=== PATIENT | male | born 1965 | race Caucasian/White ===

== ENCOUNTER 2018-02-04 20:09 | Observation (INO) ==
[2018-02-04] MEDS ORDERED: Famotidine PF Inj 20 MG/2 ML Vial IV.PUSH ONE (20:27)
[2018-02-04] MEDS ORDERED: Ketorolac Inj 30 MG/ML (IVP) Vial IV.PUSH ONE (20:27)
[2018-02-04] MEDS ORDERED: Sod Chloride 0.9% Inj 1,000 ML IV.SIG ONE (20:27)
[2018-02-04] MEDS ORDERED: Morphine Inj 4 MG/ML Vial IV.PUSH ONE (20:27)
--- NOTE | 2018-02-04 20:33 | ED ---
HPI General Chief Complaint: Abdominal Pain Stated Complaint: abd pain Xtoday Time Seen by Provider: 02/04/18 20:22 Source: patient Mode of arrival: ambulatory Limitations: no limitations History of Present Illness HPI narrative: The patient is a 52-year-old male who presents to the emergency department via private vehicle for abdominal pain. The patient states he was awake this morning, already at work after eating eggs and an apple when he developed abdominal pain. Initially the abdominal pain was located in the epigastrium and bilateral flanks, however, is now located in the lower quadrants bilaterally. The abdominal pain is cramping, sharp, constant, and associate with mild nausea. The patient denies any vomiting or constipation. The patient denies any history of previous abdominal surgeries. The patient does have a remote history of gastritis 17 years ago. The patient denies any dysuria, frequency, urgency, or hematuria. He denies any associated fever, chills, or sweats. Symptoms are moderate, there are no current alleviating factors. MD complaint: Reports abdominal pain Onset (ago): hour(s) Pain Consistency: constant Location: Reports diffuse Severity: moderate Severity scale (1-10): 6 Quality: Reports cramping and fullness Radiation: Reports LLQ and RLQ Migration to: Reports periumbilical Relieving factors: nothing Exacerbating factors: nothing Associated symptoms: Reports nausea Related Data Home Medications Medication Instructions Recorded Confirmed No Known Home Medications 02/04/18 02/04/18 Allergies Allergy/AdvReac Type Severity Reaction Status Date / Time Penicillins Allergy Intermediate Swelling Verified 02/04/18 20:27 Review of Systems ROS: all other systems reviewed are negative [facility] Medical History Medical History Patient denies medical problems (Acute) Surgical History Surgical History No history of previous surgery (Acute) Social History Social History Substance History: No History of Abuse Smoking Status: Never smoker How Often Do You Have a Drink Containing Alcohol: Monthly or less Recent Travel in [facility] within the Last 8 Weeks: No Recent Out of Country Travel within the Last 8 Weeks: No Exam Narrative Exam Narrative: GENERAL: Awake, alert, pleasant 52-year-old male who appears his stated age and is in no acute respiratory distress. SKIN: Focused skin assessment warm/dry. HEAD: Atraumatic. Normocephalic. EYES: Pupils equal and round. No scleral icterus. No injection or drainage. ENT: No nasal bleeding or discharge. Mucous membranes pink and moist. NECK: Trachea midline. No JVD. CARDIOVASCULAR: Regular rate and rhythm. No murmur appreciated. Heart rate in the 90s per RESPIRATORY: No accessory muscle use. Clear to auscultation. Breath sounds equal bilaterally. GASTROINTESTINAL: Abdomen soft, tender to palpation left lower quadrant and right lower quadrant. No guarding or rigidity. No rebound tenderness. Back: No CVA tenderness. MUSCULOSKELETAL: No obvious deformities. No clubbing. No cyanosis. No edema. NEUROLOGICAL: Awake and alert. No obvious cranial nerve deficits. Motor grossly within normal limits. Normal speech. PSYCHIATRIC: Appropriate mood and affect; insight and judgment normal. Course Initial Documented Vital Signs Temperature 99.7 F H 02/04/18 20:20 Pulse Rate 96 H 02/04/18 20:20 Respiratory Rate 18 02/04/18 20:20 Blood Pressure 124/66 02/04/18 20:20 Pulse Oximetry 97 02/04/18 20:20 Last Documented Vital Signs Temperature 99.7 F H 02/04/18 20:20 Pulse Rate 96 H 02/04/18 20:20 Respiratory Rate 18 02/04/18 20:20 Blood Pressure 124/66 02/04/18 20:20 Pulse Oximetry 97 02/04/18 20:20 Medical Decision Making MDM Narrative Medical decision making narrative: IV was established, labs are drawn and sent, and the patient was placed on cardiac telemetry monitoring and continuous pulse oximetry monitoring. The patient was administered morphine, Toradol, Zofran, Pepcid, and IV fluids. CT of the abdomen and pelvis with IV contrast was obtained to evaluate for possible diverticulitis. The patient's white count was mildly elevated at 14.3. Heart rate was initially in the 90s, temperature 99.7. Patient does have Sirs criteria with heart rate and white count. CT the abdomen and pelvis reveals a 3.6 cm abnormality, possible fecalization but no air-fluid levels to suggest obstruction, also had air bubbles within it, possibly abscess. However, there is no surrounding induration in the fat. Therefore, a call was placed to the on-call general surgeon, Dr. Davey, at 10: 07 PM. I discussed the patient with Dr. Davey at 10:08 PM, after discussion he would prefer transfer to [facility], possibly a repeat CT with oral contrast in the morning, but request transfer in case there is interventional radiology and/or surgical intervention. The patient was administered Cipro and Flagyl, will be kept n.p.o. after midnight, was placed on IV fluids. I discussed the patient with the on-call medical team, Dr. Barrera, who agrees with admission. Medical Screen Exam Complete: Yes Emergency Medical Condition: Yes Differential Diagnosis Differential Diagnosis: Differential diagnosis includes diverticulitis, atypical appendicitis, gastroenteritis, gastritis, food poisoning, pancreatitis , nephrolithiasis. Lab Data Lab results reviewed: Yes I reviewed the patient's lab results. Result diagrams: 02/04/18 20:30 02/04/18 20:30 Lab Results 02/04/18 02/04/18 02/04/18 Range/Units 20:30 20:30 20:30 CBC w Diff Auto diff final WBC 14.3 H (4.0-11.0) th/mm3 RBC 4.85 (4.50-5.90) mil/mm3 Hgb 15.1 (13.0-17.0) gm/dL Hct 42.7 (39.0-51.0) % MCV 88.0 (80.0-100.0) fL MCH 31.2 (27.0-34.0) pg MCHC 35.5 (32.0-36.0) % RDW 13.3 (11.6-17.2) % Plt Count 255 (150-450) th/mm3 MPV 8.6 (7.0-11.0) fL Neut % (Auto) 87.9 H (16.0-70.0) % Lymph % (Auto) 6.0 L (9.0-44.0) % [place] % (Auto) 5.7 (0.0-8.0) % Eos % (Auto) 0.2 (0.0-4.0) % Baso % (Auto) 0.2 (0.0-2.0) % Neut # (Auto) 12.6 H (1.8-7.7) th/mm3 Lymph # (Auto) 0.9 L (1.0-4.8) th/mm3 [place] # (Auto) 0.8 (0.0-0.9) th/mm3 Eos # (Auto) 0.0 (0.0-0.4) th/mm3 Baso # (Auto) 0.0 (0.0-0.2) th/mm3 WBC Differential . Differential Comment . Sodium 136 (136-145) meq/L Potassium 3.7 (3.5-5.1) meq/L Chloride 101 (98-107) meq/L Carbon Dioxide 28.0 (21.0-32.0) meq/L Anion Gap 7 (5-15) meq/L BUN 13 (7-18) mg/dL Creatinine 1.10 (0.60-1.30) mg/dL Estimated GFR 70 L (>89) mL/min Random Glucose 119 H (74-106) mg/dL Lactic Acid 1.2 (0.4-2.0) mmol/L Calcium 8.4 L (8.5-10.1) mg/dL Magnesium 2.1 (1.5-2.5) mg/dL Total Bilirubin 0.4 (0.2-1.0) mg/dL AST 24 (15-37) U/L ALT 52 (12-78) U/L Alkaline Phosphatase 71 (45-117) U/L Total Protein 8.0 (6.4-8.2) g/dL Albumin 4.1 (3.4-5.0) g/dL Lipase 93 (73-393) U/L Urine Color (Yellw/Straw) Urine Clarity (Clear) Urine pH (5.0-8.5) Ur Specific [place] (1.002-1.035) Urine Protein (Neg-Trace) mg/dL Urine Glucose (UA) (Negative) mg/dL Urine Ketones (Negative) mg/dL Urine Occult Blood (Negative) Urine Nitrate (Negative) Urine Bilirubin (Negative) Urine Urobilinogen (Less than 2) mg/dL Ur Leukocyte Esterase (Negative) Ur Squamous Epith Cells (0-5) /hpf Micro UA Comment Ur Microscopic Review Urine Culture Comments 02/04/18 Range/Units 21:40 CBC w Diff WBC (4.0-11.0) th/mm3 RBC (4.50-5.90) mil/mm3 Hgb (13.0-17.0) gm/dL Hct (39.0-51.0) % MCV (80.0-100.0) fL MCH (27.0-34.0) pg MCHC (32.0-36.0) % RDW (11.6-17.2) % Plt Count (150-450) th/mm3 MPV (7.0-11.0) fL Neut % (Auto) (16.0-70.0) % Lymph % (Auto) (9.0-44.0) % [place] % (Auto) (0.0-8.0) % Eos % (Auto) (0.0-4.0) % Baso % (Auto) (0.0-2.0) % Neut # (Auto) (1.8-7.7) th/mm3 Lymph # (Auto) (1.0-4.8) th/mm3 [place] # (Auto) (0.0-0.9) th/mm3 Eos # (Auto) (0.0-0.4) th/mm3 Baso # (Auto) (0.0-0.2) th/mm3 WBC Differential Differential Comment Sodium (136-145) meq/L Potassium (3.5-5.1) meq/L Chloride (98-107) meq/L Carbon Dioxide (21.0-32.0) meq/L Anion Gap (5-15) meq/L BUN (7-18) mg/dL Creatinine (0.60-1.30) mg/dL Estimated GFR (>89) mL/min Random Glucose (74-106) mg/dL Lactic Acid (0.4-2.0) mmol/L Calcium (8.5-10.1) mg/dL Magnesium (1.5-2.5) mg/dL Total Bilirubin (0.2-1.0) mg/dL AST (15-37) U/L ALT (12-78) U/L Alkaline Phosphatase (45-117) U/L Total Protein (6.4-8.2) g/dL Albumin (3.4-5.0) g/dL Lipase (73-393) U/L Urine Color Yellow (Yellw/Straw) Urine Clarity Clear (Clear) Urine pH 6.0 (5.0-8.5) Ur Specific [place] Less/equal 1.005 (1.002-1.035) Urine Protein Negative (Neg-Trace) mg/dL Urine Glucose (UA) Negative (Negative) mg/dL Urine Ketones Negative (Negative) mg/dL Urine Occult Blood Negative (Negative) Urine Nitrate Negative (Negative) Urine Bilirubin Negative (Negative) Urine Urobilinogen 0.2 (Less than 2) mg/dL Ur Leukocyte Esterase Negative (Negative) Ur Squamous Epith Cells 0-5 (0-5) /hpf Micro UA Comment Culture not ind Ur Microscopic Review Microscopic reviewed Urine Culture Comments Culture not ind Imaging Data Radiologist's impression: Abdomen/Pelvis CT 02/04/18 20:27 CONCLUSION: 1. 3.6 cm abnormality in the posterior mid mesentery adjacent to loops of nondistended small bowel with internal contents demonstrate the appearance of fecalization. Even though fecalization has been associated with small bowel obstruction, no dilated loops of small bowel either proximal or distal to suggest obstruction. This could represent an abscess, but there is no induration of the fat about the abnormality. Discharge Plan Physicians Team ED Provider: Pete Lira Primary Care Provider: Skip Mcgregor Other Providers: Quinn Davey Rxs /Orders / Referrals /Forms Prescriptions: No Action No Known Home Medications RF: 0 Status ED Status: Admitted Patient
[2018-02-04 20:44] LABS: Baso % (Auto) 0.2 % (0.0-2.0); Eos % (Auto) 0.2 % (0.0-4.0); Hematocrit 42.7 % (39.0-51.0); Hemoglobin 15.1 gm/dL (13.0-17.0); Lymph # (Auto) 0.9 th/mm3 (1.0-4.8); Mean Corpuscular HGB Conc 35.5 % (32.0-36.0); Mean Corpuscular Hemoglobin 31.2 pg (27.0-34.0); Mean Platelet Volume 8.6 fL (7.0-11.0); Mono # (Auto) 0.8 th/mm3 (0.0-0.9); Mono % (Auto) 5.7 % (0.0-8.0); Neut # (Auto) 12.6 th/mm3 (1.8-7.7); Neut % (Auto) 87.9 % (16.0-70.0); Platelet Count 255 th/mm3 (150-450); Red Blood Count 4.85 mil/mm3 (4.50-5.90); Red Cell Distribution Width 13.3 % (11.6-17.2); White Blood Count 14.3 th/mm3 (4.0-11.0)
[2018-02-04 20:52] LABS: Chloride 101 meq/L (98-107); Potassium 3.7 meq/L (3.5-5.1); Sodium 136 meq/L (136-145)
[2018-02-04 20:55] LABS: Calcium 8.4 mg/dL (8.5-10.1)
[2018-02-04 20:56] LABS: Albumin 4.1 g/dL (3.4-5.0); Anion Gap 7 meq/L (5-15); Blood Urea Nitrogen 13 mg/dL (7-18); Glucose,Random 119 mg/dL (74-106); Lipase 93 U/L (73-393); Magnesium 2.1 mg/dL (1.5-2.5)
[2018-02-04 20:59] LABS: Alanine Aminotransferase 52 U/L (12-78); Aspartate Aminotransferase 24 U/L (15-37); Glomerular Filtration Rate 70 mL/min (>89)
[2018-02-04 21:02] LABS: Alkaline Phosphatase 71 U/L (45-117)
[2018-02-04 21:48] LABS: Bilirubin,Urine Negative (Negative); Clarity,Urine Clear (Clear); Color,Urine Yellow (Yellw/Straw); Glucose,Urine (UA) Negative (Negative); Leukocyte Esterase,Urine Negative (Negative); Nitrite,Urine Negative (Negative); Specific Gravity,Urine Less/Equal 1.005 (1.002-1.035); Urobilinogen,Urine 0.2 mg/dL (Less than 2)
[2018-02-04 21:59] LABS: Squamous Epithelial Cell,Urine 0-5 /hpf (0-5)
--- NOTE | 2018-02-04 22:01 | CT ---
EXAM DATE: 02/04/2018 9:48 PM EST AGE/SEX: 52 years / Male INDICATIONS: Abdominal pain with fever for past twelve hours. CLINICAL DATA: This is the patient's initial encounter. Patient reports that signs and symptoms have been present for 1 day and indicates a pain score of 7/10. MEDICAL/SURGICAL HISTORY: . None. ORAL CONTRAST: No oral contrast ingested. RADIATION DOSE: 10.83 CTDI (mGy) COMPARISON: No prior exams available for comparison. TECHNIQUE: Multiple contiguous axial images were obtained through the abdomen and pelvis following b olus infusion of 90 ml Omnipaque 350 (iohexol) nonionic water-soluble contrast as a single exam dos e. No oral contrast ingested. Using automated exposure control and adjustment of the mA and/or kV ac cording to patient size, radiation dose was kept as low as reasonably achievable to obtain optimal di agnostic quality images. DICOM format image data is available electronically for review and comparis on. FINDINGS: Lower Lungs: The visualized lower lungs are clear. Liver: The liver has a homogeneous density without space-occupying lesion. There is no dilation of th e biliary tree. No calcified gallstones Spleen: Homogeneous density without enlargement. Pancreas: Unremarkable without mass or calcification. Kidneys: Normal in size and shape. No evidence of mass or hydronephrosis. Adrenal Glands: Unremarkable. Aorta: The aorta and proximal iliac vessels are grossly unremarkable without aneurysmal dilation. Bowel/Mesentery: There is a 3.6 cm rounded area in the posterior mid mesentery which contains bubble s of gas and soft tissue density (fecalization) located adjacent to nondistended loops of small bowel . This is best seen on axial image #54. There is no induration of the fat about the abnormality. Loop s of small bowel both proximal and distal to this abnormality are normal in dimension. There is some mild induration surrounding the distal ileum which is nondistended. The colon has a normal appearance . No evidence of free fluid. Abdominal Wall: Intact. Retroperitoneum: No evidence of adenopathy in the retrocrural, para-aortic, or deep pelvic regions. Bladder: Contours are smooth. Reproductive Organs: No abnormal masses or calcifications seen. Inguinal: The inguinal region is unremarkable without evidence of adenopathy. Bony Structures: Unremarkable. CONCLUSION: 1. 3.6 cm abnormality in the posterior mid mesentery adjacent to loops of nondistended small bowel w ith internal contents demonstrate the appearance of fecalization. Even though fecalization has been a ssociated with small bowel obstruction, no dilated loops of small bowel either proximal or distal to suggest obstruction. This could represent an abscess, but there is no induration of the fat about the abnormality. Electronically signed by: Killian Sparks MD 02/04/2018 10:00 PM EST
[2018-02-04] MEDS ORDERED: Ciprofloxacin 400 MG/200 ML 400 MG/200 ML PIGGYBACK IV.SIG ONE (22:16)
[2018-02-04] MEDS: Potassium Chloride Inj 10 MEQ in Sod Chloride 0.9% Inj 1,000 ML IV.CONT SCH (22:33)
[2018-02-05] MEDS ORDERED: Bisacodyl 10 MG Supp RECTAL PRN (00:02)
[2018-02-05] MEDS ORDERED: Acetaminophen 325 MG Tablet PO PRN ×2 (00:02→12:23)
[2018-02-05] MEDS ORDERED: Morphine Sulfate Inj 2 MG/ML Vial IV.PUSH PRN ×2 (03:50→12:23)
[2018-02-05 07:08] LABS: Baso % (Auto) 0.4 % (0.0-2.0); Eos % (Auto) 0.3 % (0.0-4.0); Hematocrit 38.2 % (39.0-51.0); Hemoglobin 13.3 gm/dL (13.0-17.0); Lymph # (Auto) 1.5 th/mm3 (1.0-4.8); Lymph % (Auto) 13.5 % (9.0-44.0); Mean Corpuscular HGB Conc 34.8 % (32.0-36.0); Mean Corpuscular Hemoglobin 31.3 pg (27.0-34.0); Mean Platelet Volume 8.6 fL (7.0-11.0); Mono # (Auto) 1.1 th/mm3 (0.0-0.9); Mono % (Auto) 10.1 % (0.0-8.0); Neut # (Auto) 8.4 th/mm3 (1.8-7.7); Neut % (Auto) 75.7 % (16.0-70.0); Platelet Count 199 th/mm3 (150-450); Red Blood Count 4.25 mil/mm3 (4.50-5.90); Red Cell Distribution Width 13.5 % (11.6-17.2); White Blood Count 11.1 th/mm3 (4.0-11.0)
[2018-02-05 07:47] LABS: Calcium 7.9 mg/dL (8.5-10.1); Carbon Dioxide 27.4 meq/L (21.0-32.0); Potassium 3.6 meq/L (3.5-5.1)
--- NOTE | 2018-02-05 09:36 | P.HPIM ---
History of Present Illness Service: [place] [facility] Primary Care Physician: Skip Mcgregor DO Chief Complaint: Abdominal pain History of Present Illness: 52-year-old male with no past medical history presents to the emergency room due to acute abdominal pain. Patient reported that the pain started yesterday morning when he ate an apple and hard boiled egg for breakfast and noted epigastric abdominal pain with bilateral bandlike radiation in which he describes as sharp and stabbing in nature. He took some Pepto-Bismol thinking and will relieve the pain however after eating a sandwich for lunch had bouts of nausea and nonbilious vomiting with persistent abdominal pain now radiating also to bilateral lower areas of the abdomen. He describes as a sharp stabbing pain that comes and goes however has become more constant now. He denies any associated chills of fever with these symptoms. He has not ate any unusual food during the past week. In addition he had a large bowel movement yesterday evening at 10 PM with no bloody stools or black stools. Of note, patient had a EGD colonoscopy 1 year ago with no abnormal findings. Diagnosis (1) Abdominal pain: Review of Systems Constitutional: Reports as per HPI and Denies headache(s) Eyes: Denies blurry vision, Denies change in vision and Denies eye pain Ears, Nose, Mouth, and Throat: Denies abnormal hearing, Denies headache(s), Denies mouth pain, Denies nasal congestion, Denies neck pain and Denies sore throat Cardiovascular: Denies chest pain, Denies pedal edema, Denies palpitations and Denies dyspnea Respiratory: Denies cough and Denies dyspnea Gastrointestinal: Reports abdominal pain, Denies melena, Denies constipation, Denies early satiety, Denies dyspepsia, Reports heartburn, Denies loose stools, Reports nausea, Reports vomiting and Denies hematemesis Musculoskeletal: Denies back pain, Denies myalgias, Denies arthralgias, Denies neck pain and Denies numbness Skin/Breast: Denies new lesions and Denies rash Neurologic: Denies abnormal hearing, Denies headache(s), Denies focal weakness, Denies memory loss and Denies numbness Psychiatric: Denies anxiety, Denies depression and Denies memory loss Endocrine: Denies cold intolerance, Denies heat intolerance and Denies palpitations Hematologic/Lymphatic: Denies easy bleeding and Denies easy bruising PMFSH Medical History Medical History Patient denies medical problems (Acute) Surgical History Surgical History No history of previous surgery (Acute) Family History Family History Father Diabetes CAD (coronary artery disease) Hypertension Mother Diabetes CAD (coronary artery disease) Hypertension Parkinson disease Social History Social History Substance History: No History of Abuse Second Hand Smoke Exposure: No Smoking Status: Never smoker How Often Do You Have a Drink Containing Alcohol: Monthly or less Recent Travel in [place] within the Last 8 Weeks: No Recent Out of Country Travel within the Last 8 Weeks: No Immunization History Tetanus Immunization: Unsure Medications and Allergies Allergies Allergy/AdvReac Type Severity Reaction Status Date / Time Penicillins Allergy Intermediate Swelling Verified 02/04/18 20:27 Home Medications Medication Instructions Recorded Confirmed Type No Known Home Medications 02/04/18 02/04/18 History Active Medications: Active Medications Acetaminophen (Tylenol) 650 mg PO Q4H PRN PRN Reason: Temp > 100.4 Bisacodyl (Dulcolax Supp) 10 mg RECTAL DAILY PRN PRN Reason: SEVERE CONSITIPATION Potassium Chloride 10 meq/ (Sodium Chloride) 1,005 mls @ 100 mls/hr IV.CONT .Q10H3M PAWEL Last Admin: 02/04/18 22:33 Dose: 100 mls/hr Morphine Sulfate (Morphine Inj) 2 mg IV.PUSH Q3H PRN PRN Reason: pain > 4 Ondansetron HCl (Zofran Inj) 4 mg IV.PUSH Q6H PRN PRN Reason: NAUSEA OR VOMITING Sennosides (Senokot) 17.2 mg PO Q12H PRN PRN Reason: Moderate Constipation Sodium Chloride (Ns Flush) 2 ml IV.FLUSH PRN PRN PRN Reason: FLUSH AFTER USING IV ACCESS Last Admin: 02/04/18 20:49 Dose: 2 ml Physical Exam Vital signs: Last Vital Signs Temp 98.8 F 02/05/18 08:00 Pulse 84 02/05/18 08:00 Resp 18 02/05/18 08:00 BP 119/66 02/05/18 08:00 Pulse Ox 95 02/05/18 08:00 Intake & Output 02/03/18 02/04/18 02/05/18 02/06/18 06:59 06:59 06:59 06:59 Intake Total 1300 / 1300 Output Total 100 / 100 Balance 1200 / 1200 Weight 83.4 kg Narrative: GENERAL: Well-nourished well-developed white male no acute distress SKIN: Warm and dry. HEAD: Atraumatic. Normocephalic. EYES: Pupils equal and round. No scleral icterus. No injection or drainage. ENT: No nasal bleeding or discharge. Mucous membranes pink and moist. NECK: Trachea midline. No JVD. CARDIOVASCULAR: Regular rate and rhythm. RESPIRATORY: No accessory muscle use. Clear to auscultation. Breath sounds equal bilaterally. GASTROINTESTINAL: Abdomen soft, mild tenderness in the bilateral lower quadrant with no rebound or guarding, nondistended. Hepatic and splenic margins not palpable. Normoactive bowel sounds MUSCULOSKELETAL: Extremities without clubbing, cyanosis, or edema. No obvious deformities. NEUROLOGICAL: Awake and alert. No obvious cranial nerve deficits. Motor grossly within normal limits. Five out of 5 muscle strength in the arms and legs. Normal speech. PSYCHIATRIC: Appropriate mood and affect; insight and judgment normal. Results Labs CBC & Chem 7: 02/05/18 05:41 02/05/18 05:41 Imaging Impressions Abdomen/Pelvis CT 02/04/18 20:27 CONCLUSION: 1. 3.6 cm abnormality in the posterior mid mesentery adjacent to loops of nondistended small bowel with internal contents demonstrate the appearance of fecalization. Even though fecalization has been associated with small bowel obstruction, no dilated loops of small bowel either proximal or distal to suggest obstruction. This could represent an abscess, but there is no induration of the fat about the abnormality. Caprini VTE Risk Assessment Caprini VTE Risk Assessment: No/Low Risk (score <= 1) Caprini Risk Assessment Model: Point Value = 1 Point Value = 2 Point Value = 3 Point Value = 5 Age 41-60 Minor surgery BMI > 25 kg/m2 Swollen legs Varicose veins or History of unexplained or recurrent spontaneous Oral contraceptives or hormone replacement Sepsis (< 1 month) Serious lung disease, including pneumonia (< 1 month) Abnormal pulmonary function Acute myocardial infarction Congestive heart failure (< 1 month) History of inflammatory bowel disease Medical patient at bed rest Age 61-74 Arthroscopic surgery Major open surgery (> 45 min) Laparoscopic surgery (> 45 min) Malignancy Confined to bed (> 72 hours) Immobilizing plaster cast Central venous access Age >= 75 History of VTE Family history of VTE Factor V Leiden Prothrombin [id number] Lupus anticoagulant Anticardiolipin antibodies Elevated serum homocysteine Heparin-induced thrombocytopenia Other congenital or acquired thrombophilia Stroke (< 1 month) Elective arthroplasty Hip, pelvis, or leg fracture Acute spinal cord injury (< 1 month) Prophylaxis Regimen: Total Risk Factor Score Risk Level Prophylaxis Regimen 0-1 Low Early ambulation 2 Moderate Order ONE of the following: *Sequential Compression Device (SCD) *Heparin 5000 units SQ BID 3-4 Higher Order ONE of the following medications: *Heparin 5000 units SQ TID *Enoxaparin/Lovenox 40 mg SQ daily (WT < 150 kg, CrCl > 30 mL/min) *Enoxaparin/Lovenox 30 mg SQ daily (WT < 150 kg, CrCl > 10-29 mL/min) *Enoxaparin/Lovenox 30 mg SQ BID (WT < 150 kg, CrCl > 30 mL/min) AND/OR *Sequential Compression Device (SCD) 5 or more Highest Order ONE of the following medications: *Heparin 5000 units SQ TID (Preferred with Epidurals) *Enoxaparin/Lovenox 40 mg SQ daily (WT < 150 kg, CrCl > 30 mL/min) *Enoxaparin/Lovenox 30 mg SQ daily (WT < 150 kg, CrCl > 10-29 mL/min) *Enoxaparin/Lovenox 30 mg SQ BID (WT < 150 kg, CrCl > 30 mL/min) AND *Sequential Compression Device (SCD) Assessment and Plan (1) Abdominal pain: Code(s): R10.9 - Unspecified abdominal pain Status: Acute Plan 52-year-old white male presents with acute abdominal pain 1. Acute abdominal pain associated with abnormal CT with abnormality in the posterior mid mesentery adjacent to loops of small bowel with possibility of underlying abscess Suspect sepsis on present on admission with findings of leukocytosis and tachycardia with suspected underlying abscess Surgical consult was placed with recommendations to the emergency room physician to repeat CT abdomen pelvis and continued clinical abdominal serial exams. Leukocytosis trended down with IV antibiotics and supportive care Continue bowel rest and with n.p.o. Continue pain control. 2. DVT prophylaxisbilateral SCDs H&P: Quality VTE Deep Vein Thrombosis/Pulmonary Embolism Present on Admission: No
[2018-02-05] MEDS ORDERED: Diatrizoate Meglum/Diatrizoate Sod Liq 9 ML UDC PO ONE (09:49)
[2018-02-05] MEDS: Potassium Chloride Inj 10 MEQ in Sod Chloride 0.9% Inj 1,000 ML IV.CONT SCH (10:47)
[2018-02-05] MEDS: Ciprofloxacin 400 MG/200 ML 400 MG/200 ML PIGGYBACK IV.SIG SCH ×2 (10:51→23:21)
[2018-02-05] MEDS ORDERED: Ibuprofen 400 MG Tablet PO ONE (16:15)
--- NOTE | 2018-02-05 16:39 | P.CONGS ---
[facility] Gen Surgery Consult Note Consult date: 02/05/18 Reason for consult: abdominal pain Narrative: CONSULTATION NOTE FOR SURGICAL ATTENDING, DR. АЛЕКСАНДР DAVEY Patient was in his normal sterile state of health when he started to have epigastric pain nausea became worse and he came to the emergency room a CT scan was done with noncontrast and showed some abnormality in the small bowel they recommended a contrasted study. Since he has been admitted to the hospital his pain is somewhat resolved he still having a little nausea he is waiting to get his CT scan. He is never had any abdominal surgery before he had a remote history of gastritis He recently had a EGD and colonoscopy which were all okay according to patient Review of Systems All other systems reviewed negative except as stated in [facility] - History History Provided By: Patient - Medical History Medical History: Medical History (Last Reviewed 02/05/18 @ 16:36 by Александр Davey MD) Patient denies medical problems - Surgical History Surgical History: Surgical History (Last Reviewed 02/05/18 @ 16:36 by Александр Davey MD) No history of previous surgery - Family History Family History: Family History (Last Reviewed 02/05/18 @ 16:36 by Александр Davey MD) Father Diabetes CAD (coronary artery disease) Hypertension Mother Diabetes CAD (coronary artery disease) Hypertension Parkinson disease - Social History I have reviewed the patient's Social History: Yes - Tobacco History Second Hand Smoke Exposure: No Smoking Status: Never smoker - Alcohol History How Often Do You Have a Drink Containing Alcohol: Monthly or less - Substance Use History Substance History: No History of Abuse - Travel History Recent Travel in the [place] Within the Last 8 Weeks: No Recent Travel Out of the Country Within the Last 8 Weeks: No - Immunization History Tetanus Immunization: Unsure Medications and Allergies Active Medications: Active Medications Acetaminophen (Tylenol) 650 mg PO Q4H PRN PRN Reason: TEMP>101F, PAIN 1-10, HEADACHE Last Admin: 02/05/18 13:04 Dose: 650 mg Bisacodyl (Dulcolax Supp) 10 mg RECTAL DAILY PRN PRN Reason: SEVERE CONSITIPATION Potassium Chloride 10 meq/ (Sodium Chloride) 1,005 mls @ 100 mls/hr IV.CONT .Q10H3M [facility] Last Admin: 02/05/18 10:47 Dose: 100 mls/hr Metronidazole/Sodium Chloride (Flagyl 250 Mg Inj) 50 mls @ 100 mls/hr IV.SIG Q8H [facility] Last Infusion: 02/05/18 13:08 Dose: Infused Ciprofloxacin/Dextrose (Cipro 400 Mg/200 Ml Inj) 400 mg in 200 mls @ 200 mls/ hr IV.SIG Q12H [facility] Last Infusion: 02/05/18 12:00 Dose: Infused Morphine Sulfate (Morphine Inj) 2 mg IV.PUSH Q3H PRN PRN Reason: BREAKTHROUGH PAIN Ondansetron HCl (Zofran Inj) 4 mg IV.PUSH Q6H PRN PRN Reason: NAUSEA OR VOMITING Last Admin: 02/05/18 13:05 Dose: 4 mg Sennosides (Senokot) 17.2 mg PO Q12H PRN PRN Reason: Moderate Constipation Sodium Chloride (Ns Flush) 2 ml IV.FLUSH PRN PRN PRN Reason: FLUSH AFTER USING IV ACCESS Last Admin: 02/04/18 20:49 Dose: 2 ml Allergies Allergy/AdvReac Type Severity Reaction Status Date / Time Penicillins Allergy Intermediate Swelling Verified 02/04/18 20:27 Home Medications Medication Instructions Recorded Confirmed Type No Known Home Medications 02/04/18 02/04/18 History Exam Vital signs: Vital Signs 02/04/18 20:20 02/04/18 22:26 02/05/18 00:27 Temperature 99.7 F H Pulse Rate 96 H 92 H 88 Respiratory Rate 18 Blood Pressure 124/66 107/63 107/65 Pulse Oximetry 97 97 97 02/05/18 01:31 02/05/18 04:00 02/05/18 08:00 Temperature 98.1 F 98.5 F 98.8 F Pulse Rate 78 88 84 Respiratory Rate 18 Blood Pressure 123/65 104/68 119/66 Pulse Oximetry 94 L 96 95 02/05/18 11:40 02/05/18 16:00 Temperature 99.4 F 100.1 F H Pulse Rate 86 87 Respiratory Rate 18 20 Blood Pressure 137/67 136/61 Pulse Oximetry 97 94 L Intake & Output 02/04/18 02/05/18 02/05/18 18:59 06:59 18:59 Intake Total 1300 / 1300 1255 / 1255 Output Total 100 / 100 Balance 1200 / 1200 1255 / 1255 Weight 83.4 kg Intake: IV 1300 / 1300 1255 / 1255 KCl Inj 10 MEQ In NS Inj 1,000 1005 / 1005 ML @ 100 mls/hr IV.CONT .Q10H3M [facility] Rx#:[id number] Cipro 400 MG/200 ML Inj 400 mg 200 / 200 200 / 200 In 200 ml @ 200 mls/hr IV.SIG Q12H [facility] Rx#:[id number] NS Inj 1,000 ML @ Wide Open IV. 1000 / 1000 SIG BOLUS ONE Rx#:[id number] Flagyl 250 mg Inj 50 ML @ 100 50 / 50 mls/hr IV.SIG Q8H [facility] Rx#: [id number] Flagyl 500 MG Inj 100 ML @ 100 100 / 100 mls/hr IV.SIG ONCE ONE Rx#: [id number] Output: Urine 100 / 100 Other: # Voids 1 Narrative: Alert oriented sitting up in bed Neck is supple no JVD Chest is clear throughout Abdomen thin soft no surgical scars mild soreness to very very deep palpation in the midepigastric region no rebound or guarding no umbilical hernia noted no tenderness to left lower quadrant no tenderness in the right upper quadrant no tenderness in the right lower quadrant Moves all extremities well no clubbing cyanosis or edema Neurologic alert oriented without focal deficits Results - Labs 02/05/18 05:41 02/05/18 05:41 Laboratory Results - last 24 hr 02/04/18 02/04/18 02/04/18 20:30 20:30 20:30 CBC w Diff Auto diff final WBC 14.3 H RBC 4.85 Hgb 15.1 Hct 42.7 MCV 88.0 MCH 31.2 MCHC 35.5 RDW 13.3 Plt Count 255 MPV 8.6 Neut % (Auto) 87.9 H Lymph % (Auto) 6.0 L [place] % (Auto) 5.7 Eos % (Auto) 0.2 Baso % (Auto) 0.2 Neut # (Auto) 12.6 H Lymph # (Auto) 0.9 L [place] # (Auto) 0.8 Eos # (Auto) 0.0 Baso # (Auto) 0.0 WBC Differential . Differential Comment . Sodium 136 Potassium 3.7 Chloride 101 Carbon Dioxide 28.0 Anion Gap 7 BUN 13 Creatinine 1.10 Estimated GFR 70 L Random Glucose 119 H Lactic Acid 1.2 Calcium 8.4 L Magnesium 2.1 Total Bilirubin 0.4 AST 24 ALT 52 Alkaline Phosphatase 71 Total Protein 8.0 Albumin 4.1 Lipase 93 Urine Color Urine Clarity Urine pH Ur Specific [place] Urine Protein Urine Glucose (UA) Urine Ketones Urine Occult Blood Urine Nitrate Urine Bilirubin Urine Urobilinogen Ur Leukocyte Esterase Ur Squamous Epith Cells Micro UA Comment Ur Microscopic Review Urine Culture Comments 02/04/18 02/05/18 02/05/18 21:40 05:41 05:41 CBC w Diff WBC 11.1 H RBC 4.25 L Hgb 13.3 Hct 38.2 L MCV 90.0 MCH 31.3 MCHC 34.8 RDW 13.5 Plt Count 199 MPV 8.6 Neut % (Auto) 75.7 H Lymph % (Auto) 13.5 [place] % (Auto) 10.1 H Eos % (Auto) 0.3 Baso % (Auto) 0.4 Neut # (Auto) 8.4 H Lymph # (Auto) 1.5 [place] # (Auto) 1.1 H Eos # (Auto) 0.0 Baso # (Auto) 0.0 WBC Differential . Differential Comment Auto diff final Sodium 139 Potassium 3.6 Chloride 105 Carbon Dioxide 27.4 Anion Gap 7 BUN 11 Creatinine 1.04 Estimated GFR 75 L Random Glucose 89 Lactic Acid Calcium 7.9 L Magnesium Total Bilirubin AST ALT Alkaline Phosphatase Total Protein Albumin Lipase Urine Color Yellow Urine Clarity Clear Urine pH 6.0 Ur Specific [place] Less/equal 1.005 Urine Protein Negative Urine Glucose (UA) Negative Urine Ketones Negative Urine Occult Blood Negative Urine Nitrate Negative Urine Bilirubin Negative Urine Urobilinogen 0.2 Ur Leukocyte Esterase Negative Ur Squamous Epith Cells 0-5 Micro UA Comment Culture not ind Ur Microscopic Review Microscopic reviewed Urine Culture Comments Culture not ind - Imaging Imaging: ITS Impressions Abdomen/Pelvis CT 02/04/18 20:27 CONCLUSION: 1. 3.6 cm abnormality in the posterior mid mesentery adjacent to loops of nondistended small bowel with internal contents demonstrate the appearance of fecalization. Even though fecalization has been associated with small bowel obstruction, no dilated loops of small bowel either proximal or distal to suggest obstruction. This could represent an abscess, but there is no induration of the fat about the abnormality. CT scan - abdomen: report reviewed, image reviewed CT scan - pelvis: report reviewed, image reviewed Assessment and Plan - Assessment (1) Abnormal findings on diagnostic imaging of abdomen Code(s): R93.5 - Abnormal findings on diagnostic imaging of other abdominal regions, including retroperitoneum Status: Acute (2) Abdominal pain Code(s): R10.9 - Unspecified abdominal pain Status: Acute (3) Leukocytosis Code(s): D72.829 - Elevated white blood cell count, unspecified Status: Acute - Plan At this time his pain is somewhat resolved may be a result of the antibiotic therapy. This is somewhat of an unusual finding on the original CT scan. Awaiting do a CT scan with contrast to further delineate this abnormality seen on the noncontrasted study. We will await further management decisions after the CT scan is done - Attending Attestation CONSULTATION NOTE FOR SURGICAL ATTENDING, DR. АЛЕКСАНДР DAVEY I attest that I had a [id number] encounter with the patient on the same day, and personally performed and documented my assessment and findings in the medical record. The following services were provided during this hospital visit: Chart data review, vital sign assessments/reviewing monitor data Review of consultations notes if present. Medication orders/review and/or management Ordering and/or reviewing lab tests Ordering and/or interpreting/reviewing x-rays and/or diagnostic studies Care of the patient and discussion of the patient with the care team Documentation time To help prompt me to consider important information that might be impacting today's encounter and assessment, Information from prior notes written by myself or my colleagues may have been "brought forward/copy and pasted" into today's note.
--- NOTE | 2018-02-05 19:59 | CT ---
EXAM DATE: 02/05/2018 7:26 PM EST AGE/SEX: 52 years / Male INDICATIONS: Abdominal pain. CLINICAL DATA: This is the patient's initial encounter. Patient reports that signs and symptoms have been present for 1 day and indicates a pain score of 7/10. MEDICAL/SURGICAL HISTORY: . Leukocytosis, systemic inflammatory syndrome None. ORAL CONTRAST: Prescribed oral contrast ingested. RADIATION DOSE: 13.05 CTDI (mGy) COMPARISON: [facility], CT ABDOMEN & PELVIS W CONTRAST, 02/04/2018. . TECHNIQUE: Multiple contiguous axial images were obtained through the abdomen and pelvis following b olus infusion of 95 ml Omnipaque 350 (iohexol) nonionic water-soluble contrast as a single exam dos e. Prescribed oral contrast ingested. Using automated exposure control and adjustment of the mA and/ or kV according to patient size, radiation dose was kept as low as reasonably achievable to obtain op timal diagnostic quality images. DICOM format image data is available electronically for review and comparison. FINDINGS: The examination is performed with intravenous and oral contrast. Prior CT scan had demonstrated a foc al abnormality in the mid abdomen with fecalization; on today's examination, there is contrast in nor mal-appearing loops of small bowel the same region. Oral contrast passes through to the descending co shanti. There is an abnormal appearance to the fat in the posterior lower right abdomen with interval de velopment of induration about a tubular structure which measures 11 mm. There is also some minimal fl uid tracking laterally. This tubular structure ends blindly and can be traced back to the cecum sugge sting an inflamed enlarged appendix. No evidence of free fluid in the pelvis. The liver, gallbladder, spleen, pancreas, kidneys, and adrenal glands are intact. Incidental note of retroaortic aortic left renal vein. CONCLUSION: 1. Interval development of induration of the fat about an enlarged and thickened appendix, character istic of appendicitis. 2. The abnormality seen in the posterior mid mesentery on yesterday's CT scan, believed to arise fro m or adjacent to the small bowel, has resolved. No evidence of obstruction with oral contrast passing through to the descending colon. Electronically signed by: Killian Sparks MD 02/05/2018 7:58 PM EST
--- NOTE | 2018-02-05 20:31 | P.PNADD ---
Addendum to Inpatient Note Reason for Addendum: Additional Documentation Additional information: Discussed abnormal CT of abd/pelvis suggestive of appendicitis with Dr. Bailey. Patient to remain NPO. Surgical management per Dr. Bailey.
[2018-02-05] MEDS ORDERED: Bupivacaine/Epinephrine PF Inj 0.5% 30 ML Vial ONE (21:23)
[2018-02-05] MEDS ORDERED: Sodium Chloride 0.9% 2 ML Flush PRN IV.FLUSH (21:47)
[2018-02-05] MEDS ORDERED: Chlorhexidine Gluconate 2% 1 Pack (2 Cloths) TOPICAL ONE (22:00)
[2018-02-05] MEDS ORDERED: Sodium Chlor 0.9% Inj 500 ML IV.CONT ONE (22:00)
[2018-02-05] MEDS ORDERED: Lidocaine PF 1% Inj 5 ML Syringe OTHER ONE (22:08)
[2018-02-05] MEDS ORDERED: Ketorolac Inj 30 MG/ML (IVP) Vial IV.PUSH ONE (22:08)
[2018-02-05] MEDS ORDERED: Sugammadex Inj 200 MG/2 ML Vial IV.PUSH ONE (22:40)
[2018-02-05] MEDS ORDERED: Morphine Inj 4 MG/ML Vial IV.PUSH PRN (23:10)
[2018-02-05] MEDS ORDERED: fentaNYL Citrate Inj 100 MCG/2 ML Ampul ONE (23:20)
--- NOTE | 2018-02-06 01:00 | MP ---
cc: Tye Walton MD DATE OF OPERATION: 02/05/2018 PREOPERATIVE DIAGNOSIS: Acute appendicitis. POSTOPERATIVE DIAGNOSIS: Acute uncomplicated appendicitis. PROCEDURE PERFORMED: Laparoscopic appendectomy. SURGEON: Tye Walton MD FOUNDRY PATTERNMAKER: Staff. ANESTHESIA: General and local anesthetic. FINDINGS: 1. Acute suppurative appendix with no evidence of gangrene or rupture or any complication. 2. No intraabdominal pathology, normal-appearing liver, stomach and viscera. ESTIMATED BLOOD LOSS: Less than 10 mL. COMPLICATIONS: None. INDICATIONS: The patient is a 52-year-old male who was admitted to [facility] with abdominal pain. Initial workup including CT scan was nonspecific. The patient underwent observation for his pain and the pain did more locate to the right lower quadrant. A followup CT scan was performed per surgery recommendations and did show some increased inflammation around the appendix concerning for development of appendicitis. Surgery team had recommended laparoscopic appendectomy and I discussed the risks, benefits and alternatives to laparoscopic appendectomy for the patient for treatment of his likely acute appendicitis. All questions were answered to his satisfaction and he agreed to proceed to the operating room for surgery urgently. DESCRIPTION OF PROCEDURE: The patient was taken to the operating room and placed in a supine position and placed under general endotracheal anesthesia. The patient's abdomen was shaved, prepped and draped in a sterile fashion. Timeout was performed. The abdomen was entered through a Thomas periumbilical technique below the umbilicus. We directly spread through the fascia and entered the abdomen through the perineum with S retractors. Local anesthetic was instilled prior to the entry as well as at the end of the case, as well as at all port sites. We directly placed a 10 mm trocar into the abdomen under visualization and insufflated the abdomen. We surveyed the abdomen with a 5 mm 30-degree camera. There was no evidence of any complication from our entry. We were able to place two 5 mm ports, one was in the suprapubic area and one in the left lower quadrant, under direct visualization of laparoscope. We were able to visualize the appendix easily at the base as it splayed into the tinea. We grasped this with a laparoscopic [place] with minimal dissection bluntly of some retroperitoneal adhesions. The appendix was brought up into our field of vision. There was some severe inflammation at the tip without any evidence of gangrene or rupture. Some minimal purulence and no abscess or any signs of any contamination. Of note, also on diagnostic laparoscopy, there was no evidence of any intra-abdominal pathology. It was a normal stomach, small bowel, colon and liver, as much as was visualized. We were able to use a single white load on the [place] 60 stapler to divide the base of the appendix as well as the thin area of mesentery adjacent to it with one white load. The appendix was removed from the abdomen with the EndoCatch bag through the periumbilical Thomas port. There was some small breakthrough bleeding at the mesentery and approximately 4 Hemoclips were placed on the appendiceal mesentery to ensure hemostasis. We had excellent hemostasis and about 5 mL of bleeding was taken out with the Ray-Alec sponge through the port. We then placed the omentum back over the right lower quadrant in the midline. We removed all the ports under visualization of the laparoscope and expressed pneumoperitoneum. We closed the Thomas entry site with a [id number] 0 Vicryl suture. We closed the skin with 4-0 Monocryl and Dermabond. The patient was discontinued from anesthesia and taken to the PACU in stable condition. The patient tolerated the procedure well. No apparent complications. All counts were correct and I was present and scrubbed for the entire procedure. MD TOSHA Raya/bar , 11:09 PM , 11:17 PM
[2018-02-06] MEDS: Potassium Chloride Inj 10 MEQ in Sod Chloride 0.9% Inj 1,000 ML IV.CONT SCH (05:30)
[2018-02-06 06:39] VITALS: RESP 18
--- NOTE | 2018-02-06 07:27 | P.PNGS ---
Subjective Patient reports: feels better, pain is less, tolerating a regular diet Physical Exam Vital signs: Vital Signs 02/05/18 08:00 02/05/18 11:40 02/05/18 16:00 Temperature 98.8 F 99.4 F 100.1 F H Pulse Rate 84 86 87 Respiratory Rate 18 18 20 Blood Pressure 119/66 137/67 136/61 Pulse Oximetry 95 97 94 L 02/05/18 20:00 02/05/18 23:00 02/05/18 23:11 Temperature 98.6 F 98.7 F 98.5 F Pulse Rate 88 92 H 97 H Respiratory Rate 18 19 15 Blood Pressure 129/68 133/69 125/66 Pulse Oximetry 95 99 96 02/05/18 23:15 02/06/18 04:00 Temperature 98.1 F Pulse Rate 101 H 91 H Respiratory Rate 16 18 Blood Pressure 124/62 115/70 Pulse Oximetry 98 95 Intake & Output 02/05/18 02/06/18 02/06/18 18:59 06:59 18:59 Intake Total 1255 / 1255 1705 / 1705 Output Total 5 / 5 Balance 1255 / 1255 1700 / 1700 Weight 82.8 kg Intake: IV 1255 / 1255 1105 / 1105 KCl Inj 10 MEQ In NS Inj 1,000 1005 / 1005 1005 / 1005 ML @ 100 mls/hr IV.CONT .Q10H3M [facility] Rx#:[id number] Cipro 400 MG/200 ML Inj 400 mg 200 / 200 In 200 ml @ 200 mls/hr IV.SIG Q12H [facility] Rx#:[id number] Flagyl 250 mg Inj 50 ML @ 100 50 / 50 100 / 100 mls/hr IV.SIG Q8H [facility] Rx#: [id number] Anesthesia Amount 600 / 600 Output: Estimated Blood Loss 5 / 5 Urine Amount (Catheter) 0 / 0 Indwelling Urethral Catheter 0 / 0 Other: # Voids 4 3 Date of Last Bowel Movement 02/04/18 Weight On Admission 83.4 kg - Constitutional no acute distress - Routine Abdominal Exam Present: soft, normoactive bowel sounds, tenderness. Absent: distended, rebound , guarding Comments: incisions c/d/i - Urinary Catheter Management Indwelling Urethral Catheter Cath placed during this visit: no Results - Labs 02/05/18 05:41 02/05/18 05:41 Laboratory Results - last 24 hr 02/05/18 05:41 Sodium 139 Potassium 3.6 Chloride 105 Carbon Dioxide 27.4 Anion Gap 7 BUN 11 Creatinine 1.04 Estimated GFR 75 L Random Glucose 89 Calcium 7.9 L - Imaging Imaging: ITS Impressions Abdomen/Pelvis CT 02/05/18 00:00 CONCLUSION: 1. Interval development of induration of the fat about an enlarged and thickened appendix, characteristic of appendicitis. 2. The abnormality seen in the posterior mid mesentery on yesterday's CT scan, believed to arise from or adjacent to the small bowel, has resolved. No evidence of obstruction with oral contrast passing through to the descending colon. Assessment and Plan - Assessment (1) Abdominal pain Code(s): R10.9 - Unspecified abdominal pain Status: Acute (2) Leukocytosis Code(s): D72.829 - Elevated white blood cell count, unspecified Status: Acute (3) Acute appendicitis Code(s): K35.80 - Unspecified acute appendicitis Status: Acute Plan: 52yo male POD#1 lap appy, doing well. can DC home if tolerates regular diet today. Rx on chart. fu with Dr. Walton in 1 week. ok to shower.
[2018-02-06 08:13] VITALS: BP 132/65; PULSE 93; TEMP 98.3; O2SAT 96
[2018-02-06] MEDS ORDERED: Sodium Chloride 0.9% 2 ML Flush BID IV.FLUSH SCH (09:00)
--- NOTE | 2018-02-06 10:06 | P.PNIM ---
Subjective Interval history: Reports mild tenderness over the right lower abdomen area otherwise tolerating diet and feels good. No nausea vomiting no fevers or chills. Wants to go home. Physical Exam Vital signs: Last Vital Signs Temp 98.3 F 02/06/18 08:00 Pulse 93 H 02/06/18 08:00 Resp 18 02/06/18 08:00 BP 132/65 02/06/18 08:00 Pulse Ox 96 02/06/18 08:00 Intake & Output 02/04/18 02/05/18 02/06/18 02/07/18 06:59 06:59 06:59 06:59 Intake Total 1300 / 1300 2960 / 2960 Output Total 100 / 100 5 / 5 Balance 1200 / 1200 2955 / 2955 Weight 83.4 kg 82.8 kg Narrative: GENERAL: This is a well-nourished, well-developed patient, in no apparent distress. CARDIOVASCULAR: Regular rate and rhythm without murmurs, gallops, or rubs. RESPIRATORY: Clear to auscultation. Breath sounds equal bilaterally. No wheezes , rales, or rhonchi. GASTROINTESTINAL: Abdomen soft, non-tender, nondistended. Normal active bowel sounds, small surgical incision below umbilicus clean dry and intact MUSCULOSKELETAL: Extremities without clubbing, cyanosis, or edema. NEURO: Alert & Oriented x4 to person, place, time, situation. Moves all ext x4 Urinary Catheter Management Indwelling Urethral Catheter: Cath placed during this visit: no Results Labs CBC & Chem 7: 02/05/18 05:41 02/05/18 05:41 Imaging Imaging: Impressions Abdomen/Pelvis CT 02/05/18 00:00 CONCLUSION: 1. Interval development of induration of the fat about an enlarged and thickened appendix, characteristic of appendicitis. 2. The abnormality seen in the posterior mid mesentery on yesterday's CT scan, believed to arise from or adjacent to the small bowel, has resolved. No evidence of obstruction with oral contrast passing through to the descending colon. Assessment and Plan (1) Abdominal pain: Code(s): R10.9 - Unspecified abdominal pain Status: Acute (2) Leukocytosis: Code(s): D72.829 - Elevated white blood cell count, unspecified Status: Acute (3) Acute appendicitis: Code(s): K35.80 - Unspecified acute appendicitis Status: Acute Plan 52-year-old white male presents with acute abdominal pain 1. Sepsis present on admission with findings of leukocytosis and tachycardia with underlying acute appendicitis Status post operative day #1 lap appendectomy Patient will has been on IV Cipro and Flagyl since admission. Currently tolerating diet and will be discharged to home. Leukocytosis trended down with IV antibiotics and supportive care 2. DVT prophylaxisbilateral SCDs Discharge patient to home Condition on discharge: Improved Regular Diet as tolerated Ad Tessa activity Rx written: [place] 5 p.o. every 4 hours as needed for pain written by Dr. Alexis Follow-up with primary care physician Follow-up with Dr. Alexis in 1 week. Progress Note: Quality VTE Deep Vein Thrombosis/Pulmonary Embolism Present on Admission: No _ (1) Abdominal pain Qualifiers: Abdominal location: (2) Leukocytosis Qualifiers: Leukocytosis type: (3) Acute appendicitis Qualifiers: Acute appendicitis type: Appendicitis gangrene presence: Appendicitis perforation presence: Appendicitis abscess presence:
[2018-02-06] MEDS ORDERED: Influenza (Quadrivalent) Vaccine 0.5 ML Syringe IM ONE (10:30)
[2018-02-06] MEDS: Ciprofloxacin 400 MG/200 ML 400 MG/200 ML PIGGYBACK IV.SIG SCH (11:31)
--- NOTE | 2018-02-06 16:11 | ECG ---
Date Performed: 02/05/2018 Time Performed: 21:11:36 PTAGE: 52 years EKG: Sinus rhythm NORMAL ECG NO PREVIOUS TRACING DOCTOR: [place] Nathan Interpretating Date/Time 02/06/2018 16:10:29
== END 2018-02-06 11:30 | disposition home or self-care (01) ==
LOC: PHED 20:09 → PHEDA 22:18 → INTOOBSV 22:18 → PHEDA 02-05 00:41 → N05 02-05 01:03
PROVIDERS: ADMIT Family Medicine; ATTEND Family Medicine
PROC: LAPAPPY (ICD-10-PCS; 2018-02-05 22:08)
DX: K35.80 Unspecified acute appendicitis; Z23 Encounter for immunization; A41.9 Sepsis, unspecified organism